=== PATIENT | female | born 1960 | race Caucasian/White ===

== ENCOUNTER → 2016-12-27 | Outpatient (CLI) | payer BC ==
--- NOTE | 2016-12-30 13:07 | MM ---
Reason for exam: screening (asymptomatic). Last mammogram was performed 1 year ago. History: Patient is postmenopausal. Family history of breast cancer in maternal cousin at age 30 and breast cancer in paternal grandmother. Left U/S Cancelled VAD Biopsy of both breasts, May 14, 2013. Excisional biopsy of the left breast, August 10, 2005. Cyst aspiration of the left breast, 2004. Cyst aspiration of the left breast, 2003. Benign core biopsy of the left breast, 2003. Physical Findings: A clinical breast exam by your physician is recommended on an annual basis and results should be correlated with mammographic findings. MG 3D Screening Mammo W/Cad Bilateral CC and MLO view(s) were taken. Prior study comparison: December 22, 2015, bilateral MG 3d screening mammo w/cad. December 16, 2014, bilateral MG screening mammo w CAD. November 19, 2013, CAD bilateral diagnostic mammogram. The breast tissue is heterogeneously dense. This may lower the sensitivity of mammography. Finding: There are typically benign round calcifications in the central position of both breasts. Previous mammotome biopsy in the left breast. There is a chronic nodularity in the left breast. ASSESSMENT: Benign, BI-RAD 2 RECOMMENDATION: Routine screening mammogram of both breasts in 1 year.
== END | disposition home or self-care (01) ==
LOC: RADMAMWWP 15:12
PROVIDERS: ATTEND Obstetrics & Gynecology
DX: Z12.31 Encounter for screening mammogram for malignant neoplasm of breast (principal)
CPT/HCPCS: 77063; G0202

== ENCOUNTER → 2018-01-30 | Outpatient (CLI) | payer BC ==
--- NOTE | 2018-02-03 14:47 | MM ---
Reason for exam: screening (asymptomatic). Last mammogram was performed 1 year and 1 month ago. History: Patient is postmenopausal. Family history of breast cancer in maternal cousin at age 30 and breast cancer in paternal grandmother. Left U/S Cancelled VAD Biopsy of both breasts, May 14, 2013. Excisional biopsy of the left breast, August 10, 2005. Cyst aspiration of the left breast, 2004. Cyst aspiration of the left breast, 2003. Benign core biopsy of the left breast, 2003. Physical Findings: A clinical breast exam by your physician is recommended on an annual basis and results should be correlated with mammographic findings. MG 3D Screening Mammo W/Cad Bilateral CC and MLO view(s) were taken. Prior study comparison: December 27, 2016, bilateral MG 3d screening mammo w/cad. December 22, 2015, bilateral MG 3d screening mammo w/cad. The breast tissue is extremely dense which could obscure a lesion on mammography. Stable benign calcifications. There is no discrete abnormality. No significant changes when compared with prior studies. ASSESSMENT: Benign, BI-RAD 2 RECOMMENDATION: Routine screening mammogram of both breasts in 1 year.
== END | disposition home or self-care (01) ==
LOC: RADMAMWWP 13:36
PROVIDERS: ATTEND Obstetrics & Gynecology
DX: Z12.31 Encounter for screening mammogram for malignant neoplasm of breast (principal)
CPT/HCPCS: 77063; 77067

== ENCOUNTER → 2018-03-16 | Outpatient (CLI) | payer BC ==
--- NOTE | 2018-03-16 14:25 | BD ---
EXAMINATION TYPE: Axial Bone Density DATE OF EXAM: 03/16/2018 COMPARISON:2014 CLINICAL HISTORY: disorder of bone Height: 5'3 /2 Weight: 157 FRAX RISK QUESTIONS: Secondary Osteoporosis: RISK FACTORS HISTORY OF: Postmenopausal woman: MEDICATIONS: Additional Medications: Singulair, Bessy, Additional History: EXAM MEASUREMENTS: Bone mineral densitometry was performed using the [employer] System. Bone mineral density as measured about the Lumbar spine is: ----- L1-L4(G/cm2): 1.124 T Score Values are as follows: ----- L2: -0.8 ----- L3: -0.1 ----- L4: -0.1 ----- L1-L4: -0.5 Bone mineral density has: Decreased -7.9% since study of: 12/16/2014 Bone mineral density about the R hip (g/cm2): 0.807 Bone mineral density about the L hip (g/cm2): 0.851 T Score values are as follows: -----R Neck: -1.7 -----L Neck: -1.3 -----R Total: -0.9 -----L Total: -0.7 Bone mineral density has: Decreased -4.3% since study of: 12/16/2014 IMPRESSION: Osteopenia (T Score between -2.5 and -1). There is slightly increased risk of fracture and the patient may be considered for treatment. Re-Screen 2-5 years. NOTE: T-SCORE=SD OF THE YOUNG ADULT MEAN.
== END | disposition home or self-care (01) ==
LOC: RADBDWWP 12:33
PROVIDERS: ATTEND Obstetrics & Gynecology
DX: Z13.820 Encounter for screening for osteoporosis (principal); M85.80 Other specified disorders of bone density and structure, unspecified site
CPT/HCPCS: 77080

== ENCOUNTER → 2019-03-05 | Outpatient (CLI) | payer BC ==
--- NOTE | 2019-03-08 10:55 | MM ---
Reason for exam: screening (asymptomatic). Last mammogram was performed 1 year and 1 month ago. History: Patient is postmenopausal. Family history of breast cancer in maternal cousin at age 30 and breast cancer in paternal grandmother. Left U/S Cancelled VAD Biopsy of both breasts, May 14, 2013. Excisional biopsy of the left breast, August 10, 2005. Cyst aspiration of the left breast, 2004. Cyst aspiration of the left breast, 2003. Benign core biopsy of the left breast, 2003. Physical Findings: A clinical breast exam by your physician is recommended on an annual basis and results should be correlated with mammographic findings. MG 3D Screening Mammo W/Cad Bilateral CC and MLO view(s) were taken. Prior study comparison: January 30, 2018, bilateral MG 3d screening mammo w/cad. December 27, 2016, bilateral MG 3d screening mammo w/cad. The breast tissue is extremely dense which could obscure a lesion on mammography. Benign appearing bilateral calcifications. Previous mammotome biopsy in the left breast. No significant changes when compared with prior studies. ASSESSMENT: Benign, BI-RAD 2 RECOMMENDATION: Routine screening mammogram of both breasts in 1 year.
== END | disposition home or self-care (01) ==
LOC: RADMAMWWP 10:33
PROVIDERS: ATTEND Obstetrics & Gynecology
DX: Z12.31 Encounter for screening mammogram for malignant neoplasm of breast (principal); Z80.3 Family history of malignant neoplasm of breast
CPT/HCPCS: 77063; 77067

== ENCOUNTER → 2020-04-24 | Outpatient (CLI) | payer BC ==
--- NOTE | 2020-04-26 08:45 | MM ---
Reason for exam: screening (asymptomatic). Last mammogram was performed 1 year and 2 months ago. History: Patient is postmenopausal. Family history of breast cancer in maternal cousin at age 30 and breast cancer in paternal grandmother. Left U/S Cancelled VAD Biopsy of both breasts, May 14, 2013. Excisional biopsy of the left breast, August 10, 2005. Cyst aspiration of the left breast, 2004. Cyst aspiration of the left breast, 2003. Benign core biopsy of the left breast, 2003. Physical Findings: A clinical breast exam by your physician is recommended on an annual basis and results should be correlated with mammographic findings. MG 3D Screening Mammo W/Cad Bilateral CC and MLO view(s) were taken. Prior study comparison: March 05, 2019, bilateral MG 3d screening mammo w/cad. January 30, 2018, bilateral MG 3d screening mammo w/cad. The breast tissue is heterogeneously dense. This may lower the sensitivity of mammography. Bilateral calcifications. No significant changes when compared with prior studies. ASSESSMENT: Benign, BI-RAD 2 RECOMMENDATION: Routine screening mammogram of both breasts in 1 year.
== END | disposition home or self-care (01) ==
LOC: RADMAMWWP 10:51
PROVIDERS: ATTEND Internal Medicine
DX: Z12.31 Encounter for screening mammogram for malignant neoplasm of breast (principal)
CPT/HCPCS: 77063; 77067

== ENCOUNTER → 2020-06-27 | Outpatient (CLI) | payer BC ==
--- NOTE | 2020-06-28 22:24 | BD ---
EXAMINATION TYPE: Axial Bone Density DATE OF EXAM: 06/27/2020 COMPARISON: DEXA bone scan March 16, 2018 CLINICAL HISTORY: Disorder of bone. Postmenopausal female. Height: 5 FT 3 1/2 IN Weight: 157 FRAX RISK QUESTIONS: Alcohol (3 or more units per day): NO Family History (Parent hip fracture): NO Glucocorticoids (More than 3mos): NO (Ex: prednisone, prednisolone, methylprednisolone, dexamethasone, and hydrocortisone). History of Fracture in Adulthood: NO Secondary Osteoporosis: 1. Type 1 Diabetes: NO 2. Hyperthyroidism: NO 3. Menopause before 45: NO 4. Malnutrition: NO 5. Chronic liver disease: NO Rheumatoid Arthritis: NO Current Tobacco Use: NO RISK FACTORS HISTORY OF: Family History of Osteoporosis: YES Active: YES Diet low in dairy products/other sources of calcium: NO Postmenopausal woman: AGE 54-55 MEDICATIONS: Additional Medications: MYRBETRIQ, EDITA,SINGULAIR Additional History: CARPAL TUNNEL SURG EXAM MEASUREMENTS: Bone mineral densitometry was performed using the [employer] System. Bone mineral density as measured about the Lumbar spine is: ----- L1-L4(G/cm2): 1.131 T Score Values are as follows: ----- L2: -0.8 ----- L3: 0.2 ----- L4: 0.2 ----- L1-L4: -0.4 Bone mineral density has: INCREASED 2.2 % since study of: 2017 Bone mineral density about the R hip (g/cm2): 0.821 Bone mineral density about the L hip (g/cm2): 0.848 T Score values are as follows: -----R Neck: -1.6 -----L Neck: -1.4 -----R Total: -0.9 -----L Total: -0.8 Bone mineral density has: DECREASED -0.6 % since study of: 2017 IMPRESSION: Osteopenia (T Score between -2.5 and -1) remains present. There remains slightly increased risk of fracture and the patient may be considered for treatment. Re-Screen 2-5 years. NOTE: T-SCORE=SD OF THE YOUNG ADULT MEAN.
== END | disposition home or self-care (01) ==
LOC: RADBDWWP 16:01
PROVIDERS: ATTEND Obstetrics & Gynecology
DX: M85.80 Other specified disorders of bone density and structure, unspecified site (principal)
CPT/HCPCS: 77080

== ENCOUNTER → 2021-05-21 | Outpatient (CLI) | payer BC ==
--- NOTE | 2021-05-22 13:38 | MM ---
Reason for exam: screening (asymptomatic). Last mammogram was performed 1 year and 1 month ago. History: Patient is postmenopausal. Family history of breast cancer in maternal cousin at age 30 and breast cancer in paternal grandmother. Left U/S Cancelled VAD Biopsy of both breasts, May 14, 2013. Excisional biopsy of the left breast, August 10, 2005. Cyst aspiration of the left breast, 2004. Cyst aspiration of the left breast, 2003. Benign core biopsy of the left breast, 2003. Physical Findings: A clinical breast exam by your physician is recommended on an annual basis and results should be correlated with mammographic findings. MG 3D Screening Mammo W/Cad Bilateral CC and MLO view(s) were taken. Prior study comparison: April 24, 2020, bilateral MG 3d screening mammo w/cad. March 05, 2019, bilateral MG 3d screening mammo w/cad. January 30, 2018, bilateral MG 3d screening mammo w/cad. The breast tissue is heterogeneously dense. This may lower the sensitivity of mammography. No significant changes when compared with prior studies. ASSESSMENT: Benign, BI-RAD 2 RECOMMENDATION: Routine screening mammogram of both breasts in 1 year.
== END | disposition home or self-care (01) ==
LOC: RADMAMWWP 11:12
PROVIDERS: ATTEND Obstetrics & Gynecology
DX: Z12.31 Encounter for screening mammogram for malignant neoplasm of breast (principal); Z80.3 Family history of malignant neoplasm of breast
CPT/HCPCS: 77063; 77067

== ENCOUNTER → 2021-10-24 | Outpatient (CLI) | payer BC ==
[2021-10-24 12:40] LABS: Basophils % (A) 0 %; Eosinophils # (A) 0.1 k/uL (0-0.7); Eosinophils % (A) 0 %; HCT 43.7 % (34.0-46.0); HGB 14.5 gm/dL (11.4-16.0); Lymphocytes # (A) 1.4 k/uL (1.0-4.8); Lymphocytes % (A) 10 %; MCH 32.8 pg (25.0-35.0); MCHC 33.1 g/dL (31.0-37.0); MCV 99.2 fL (80.0-100.0); Mean Platelet Volume 7.6; Monocytes # (A) 0.6 k/uL (0-1.0); Monocytes % (A) 4 %; Neutrophils # (A) 12.5 k/uL (1.3-7.7); Neutrophils % (A) 86 %; Platelet Count 232 k/uL (150-450); RBC 4.41 m/uL (3.80-5.40); RDW 11.9 % (11.5-15.5); WBC 14.7 k/uL (3.8-10.6)
[2021-10-24 12:57] LABS: ALT 46 U/L (4-34); AST 61 U/L (14-36); African American GFR (CKD) >90 (>60 ml/min/1.73 sqM); Albumin 4.2 g/dL (3.5-5.0); Albumin/Globulin Ratio 1.2; Alkaline Phosphatase 106 U/L (38-126); Anion Gap 8 mmol/L; Blood Urea Nitrogen 13 mg/dL (7-17); Calcium 9.3 mg/dL (8.4-10.2); Carbon Dioxide 28 mmol/L (22-30); Chloride 103 mmol/L (98-107); Globulin 3.4 g/dL; Glucose 107 mg/dL (74-99); Non-African American GFR(CKD) >90 (>60 ml/min/1.73 sqM); Potassium 4.5 mmol/L (3.5-5.1); Sodium 139 mmol/L (137-145); Total Protein 7.6 g/dL (6.3-8.2)
--- NOTE | 2021-10-24 13:18 | CT ---
EXAMINATION TYPE: CT abdomen pelvis w con DATE OF EXAM: 10/24/2021 COMPARISON: No previous CT scan is available for comparison. HISTORY: rectal bleeding CT DLP: 614.7 mGycm Automated exposure control for dose reduction was used. TECHNIQUE: Helical acquisition of images was performed from the lung bases through the pelvis. Recon structed sagittal and coronal images. CONTRAST: Performed with Oral Contrast and with IV Contrast, patient injected with 100 mL of Isovue 300. FINDINGS: Acute diverticulitis changes are seen involving the rectosigmoid junction with inflamed diverticulum, adjacent colonic wall thickening, surrounding fat stranding and minimal reactive fluid. No definite abscess formation or signs of perforation. Diffuse thickening of the rectal wall with less wall thick ening of the remainder of the colon which could be related to chronic colitis. It is not possible to exclude underlying lesion in the distal sigmoid colon and the rectum. Acute proctitis also cannot be excluded. Other scattered uncomplicated colonic diverticulosis. Unremarkable stomach, duodenum and sm all bowel. Normal appendix. Left hepatic lobe anterior cyst measuring 17 mm, without suspicious feature. No other definite hepati c focal lesion identified. Unremarkable gallbladder, spleen, pancreas, abdominal aorta and adrenals. Bilateral parapelvic renal cysts, otherwise unremarkable kidneys. Unremarkable urinary bladder. No gr oss uterine mass. Suspected pelvic adhesions between the sigmoid colon and the right adnexa. No gross adnexal mass. No suspicious lymphadenopathy or sizable ascites. Elongated 8 mm nodule is seen in the left lower annamarie g zone, possibly representing a perifissural lymph node yet not completely included in the scan. Sebas mmend further elective CT assessment of the chest. Bilateral basal linear pulmonary atelectasis. Dege nerative changes at L5-S1 level. No aggressive bone lesion. IMPRESSION: Findings are consistent with acute diverticulitis of the rectosigmoid junction as described above. Wa ll thickening of the rectum which could be related to proctitis. It is not possible to exclude subtle underlying lesion at the rectosigmoid junction or in the rectum. Possible chronic colitis. Recommend clinical correlation and further workup. GI consultation can be considered. 8mm nodule in the left lower lung zone, not completely included in the scan, requiring further electi ve chest CT assessment. Other incidental findings as described above. Findings were discussed with the referring physician immediately after the CT scan was performed.
== END | disposition home or self-care (01) ==
LOC: RADCTMAIN 10:40
PROVIDERS: ATTEND Internal Medicine
DX: K57.31 Diverticulosis of large intestine without perforation or abscess with bleeding (principal); K63.89 Other specified diseases of intestine; K62.89 Other specified diseases of anus and rectum
CPT/HCPCS: 80053; 85025; 74177; 36415; Q9967

== ENCOUNTER → 2022-07-15 | Outpatient (CLI) | payer BC ==
--- NOTE | 2022-07-16 08:57 | MM ---
Reason for Exam: Screening (asymptomatic). Last mammogram was performed 1 year(s) and 2 month(s) ago. Patient History: Menarche at age 10. First Full-Term at age 22. Postmenopausal. Patient has history of breast feeding. 08/10/2005, Excisional Biopsy on the Left side. 2004, Cyst Aspiration on the Left side. 2003, Cyst Aspiration on the Left side. 2003, Benign Core Biopsy on the left side. 05/14/2013, Bilateral Left U/S Cancelled VAD Biopsy. Paternal grandmother had breast cancer. Maternal cousin had breast cancer, age 30. Risk Values: Sylvie 5 year model risk: 2.3%. NCI Lifetime model risk: 9.7%. Prior Study Comparison: 04/16/2013 Left Diagnostic Ultrasound, [facility]. 11/19/2013 Bilateral Diagnostic Mammogram, [facility]. 11/19/2013 Left Diagnostic Ultrasound, [facility]. 12/16/2014 Bilateral Screening Mammogram, [facility]. 12/22/2015 Bilateral Screening Mammogram, [facility] 12/27/2016 Bilateral Screening Mammogram, [facility] 01/30/2018 Bilateral Screening Mammogram, [facility]. 03/05/2019 Bilateral Screening Mammogram, [facility]. 04/24/2020 Bilateral Screening Mammogram, [facility]. 05/21/2021 Bilateral Screening Mammogram, [facility]. Tissue Density: The breast tissue is heterogeneously dense. This may lower the sensitivity of mammography. Findings: Analyzed By CAD. Biopsy clip in the left breast. There is no suspicious group of microcalcifications or new suspicious mass in either breast. Overall Assessment: Negative, BI-RAD 1 Management: Screening Mammogram of both breasts in 1 year. A clinical breast exam by your physician is recommended on an annual basis and results should be correlated with mammographic findings. [facility] will attempt to contact patient to return for supplemental views and ultrasound if indicated. Electronically signed and approved by: Jose Houston DO
--- NOTE | 2022-07-16 11:53 | BD ---
EXAMINATION TYPE: Axial Bone Density DATE OF EXAM: 07/15/2022 COMPARISON: 06/27/2020 CLINICAL HISTORY: 62 years old Female. ICD-10 CODE: M85.88 DISORDER OF BONE, OSTEOPENIA Height: 63 Weight: 153 FRAX RISK QUESTIONS: Family History (Parent hip fracture): NO History of Fracture in Adulthood: NO Secondary Osteoporosis: NO Rheumatoid Arthritis: NO Current Tobacco Use: NO RISK FACTORS HISTORY OF: Family History of Osteoporosis: YES Active: YES Diet low in dairy products/other sources of calcium: YES Postmenopausal woman: YES 53 Lost more than 2 inches in height since high school: NO MEDICATIONS: Additional Medications: YES CALCIUM, VIT D, SINGULAR, EDITA , MYRBETRIQ , REFLUX EXAM MEASUREMENTS: Bone mineral densitometry was performed using the [employer] System. Bone mineral density as measured about the Lumbar spine is: ----- L1-L4(G/cm2): 1.068 T Score Values are as follows: ----- L1: -1.9 ----- L2: -1.8 ----- L3: -0.4 ----- L4: -0.1 ----- L1-L4: -0.9 Bone mineral density has: Decreased -6.3% since study of: 06/27/2020 Bone mineral density about the R hip (g/cm2): 0.884 Bone mineral density about the L hip (g/cm2): 0.883 T Score values are as follows: -----R Neck: -1.9 -----L Neck: -1.8 -----R Total: -1.0 -----L Total: -1.0 Bone mineral density has: Decreased -1.8% since study of: 06/27/2020 FRAX%s: The graph provided illustrates a 9.9% chance for a major osteoporotic fx and a 1.3% chance fo r the hips probability for fx in 10 years time. IMPRESSION: Osteopenia (T Score between -2.5 and -1). There is slightly increased risk of fracture and the patient may be considered for treatment. Re-Screen 2-5 years. NOTE: T-SCORE=SD OF THE YOUNG ADULT MEAN.
== END | disposition home or self-care (01) ==
LOC: RADMAMWWP 15:44
PROVIDERS: ATTEND Obstetrics & Gynecology
DX: Z12.31 Encounter for screening mammogram for malignant neoplasm of breast (principal); M85.88 Other specified disorders of bone density and structure, other site; Z78.0 Asymptomatic menopausal state; Z80.3 Family history of malignant neoplasm of breast; Z13.820 Encounter for screening for osteoporosis
CPT/HCPCS: 77063; 77067; 77080

== ENCOUNTER → 2023-07-23 | Outpatient (CLI) | payer BC ==
--- NOTE | 2023-07-24 17:10 | MM ---
Reason for Exam: Screening (asymptomatic). Last screening mammogram was performed 12 month(s) ago. Patient History: Menarche at age 10. First Full-Term at age 22. Postmenopausal. Patient has history of breast feeding. 08/10/2005, Excisional Biopsy on the Left side. 2004, Cyst Aspiration on the Left side. 2003, Cyst Aspiration on the Left side. 2003, Benign Core Biopsy on the left side. 05/14/2013, Bilateral Left U/S Cancelled VAD Biopsy. Paternal grandmother had breast cancer. Maternal cousin had breast cancer, age 30. Risk Values: Sylvie 5 year model risk: 2.4%. NCI Lifetime model risk: 9.4%. Prior Study Comparison: 04/24/2020 Bilateral Screening Mammogram, [facility]. 05/21/2021 Bilateral Screening Mammogram, [facility]. 07/15/2022 Bilateral MG 3D screening mammo w/cad, [facility]. Tissue Density: The breast tissue is extremely dense which could obscure a lesion on mammography. Findings: Analyzed By CAD. Pattern appears stable. Core marker is within the left breast. Scattered benign punctate calcifications are present bilaterally. No suspicious groups of microcalcifications, spiculated or lobular masses, architectural distortion or other secondary signs of malignancy are mammographically apparent. Overall Assessment: Benign, BI-RAD 2 Management: Screening Mammogram of both breasts in 1 year. A negative mammogram report should not preclude additional follow up of suspicious palpable abnormalities. Patient should continue monthly self breast exam. A clinical breast exam by your physician is recommended on an annual basis and results should be correlated with mammographic findings. Electronically signed and approved by: Erickson Her D.O. Radiologis
== END | disposition home or self-care (01) ==
LOC: RADMAMWWP 13:57
PROVIDERS: ATTEND Obstetrics & Gynecology
DX: Z12.31 Encounter for screening mammogram for malignant neoplasm of breast (principal); Z78.0 Asymptomatic menopausal state; Z80.3 Family history of malignant neoplasm of breast
CPT/HCPCS: 77063; 77067

== ENCOUNTER → 2024-01-06 | Outpatient (CLI) | payer BC ==
--- NOTE | 2024-01-07 08:28 | US ---
EXAMINATION TYPE: US carotid duplex BILAT DATE OF EXAM: 01/06/2024 COMPARISON: NONE CLINICAL INDICATION: Female, 63 years old with history of I65.23 OCCLUSION AND STENOSIS OF BILATERAL CAROTID ARTERIES; Hyperlipidemia. Lightheadedness. TECHNIQUE: Carotid duplex ultrasound examination. Indirect Doppler criteria was utilized. FINDINGS: EXAM MEASUREMENTS: RIGHT: Peak Systolic Velocity (PSV) cm/sec ----- Right CCA: 78.7 ----- Right ICA: 97.4 ----- Right ECA: 91.9 ICA/CCA ratio: 1.2 RIGHT: End Diastole cm/sec ----- Right CCA: 23.7 ----- Right ICA: 32.5 ----- Right ECA: 14.9 LEFT: Peak Systolic Velocity (PSV) cm/sec ----- Left CCA: 76.5 ----- Left ICA: 110.6 ----- Left ECA: 88.6 ICA/CCA ratio: 1.4 LEFT: End Diastole cm/sec ----- Left CCA: 24.8 ----- Left ICA: 35.8 ----- Left ECA: 14.5 VERTEBRALS (direction of flow): Right Vertebral: Antegrade Left Vertebral: Antegrade Rhythm: Normal HOSTEL PARENT NOTES: No elevated velocities at this time. Some atheromatous plaquing is present. *Hypoechoic area seen within the left neck: 1.4 x 1.2 x 0.6 cm. IMPRESSION: 1. Atheromatous plaquing without significant flow-limiting stenosis based on velocities. Criteria for Assigning % of Stenosis / Diameter reduction (Estimation based on the indirect measurements of the internal carotid artery velocities (ICA PSV). 1. Normal (no stenosis)=ICA PSV < 125 cm/s: ratio < 2.0: ICA EDV<40 cm/s. 2. Less than 50% stenosis=ICA PSV < 125 cm/s: ratio < 2.0: ICA EDV<40 cm/s. 3. 50 to 69% stenosis=ICA PSV of 125 to 230 cm/s: ration 2.0 ? 4.0: ICA EDV 40-100 cm/s. 4. Greater than 70% stenosis to near occlusion= ICA PSV > 230 cm/s: ratio > 4.0: ICA EDV > 100 cm/s. 5. Near occlusion= ICA PSV velocities may be low or undetectable: variable ratio and ICA EDV. 6. Total occlusion=unable to detect flow.
--- NOTE | 2024-01-09 13:00 | CT ---
EXAMINATION TYPE: CT chest w con DATE OF EXAM: 01/06/2024 COMPARISON: None HISTORY: nodules CT DLP: 246.8 mGycm, Automated exposure control for dose reduction was used. CONTRAST: Performed injected with 100 mL of Isovue 300. TECHNIQUE: Axial images were obtained at 5 mm thick sections. Reconstructed images are reviewed on [employer] computer in the coronal plane. FINDINGS: Portion of the thyroid visualized is normal. There is a 0.7 x 0.3 cm nodule in the left lateral lung base. Series 4 image 38. No additional nodule s are evident. No suspicious infiltrates are evident. There is a 0.9 cm nodule within the pretracheal space. The ascending aorta diameter at the level of the main pulmonary artery is 2.8 cm. The main pulmonary artery diameter at the bifurcation is 2.[address] sections are obtained through the upper abdomen. Moderate left hydronephrosis is partially visualized IMPRESSION: 1. Solitary nodule left lung base. PET/CT can further evaluate this finding. 2. Left hydronephrosis partially visualized.
== END | disposition home or self-care (01) ==
LOC: RADUSWWP 16:25
PROVIDERS: ATTEND Internal Medicine
DX: R91.1 Solitary pulmonary nodule (principal); N13.30 Unspecified hydronephrosis; I65.23 Occlusion and stenosis of bilateral carotid arteries; R07.2 Precordial pain; E78.5 Hyperlipidemia, unspecified; R42 Dizziness and giddiness
CPT/HCPCS: 93880; 71260; Q9967

== ENCOUNTER → 2024-01-07 | Outpatient (CLI) | payer BC ==
--- NOTE | 2024-01-07 12:14 | CA ---
Exercise Nuclear Stress Test Report Name: Latoya Cedeño Exam Date: 01/07/2024 09:40 Exam Location: [facility] Ht (in): 64 Wt (lb): 150 BSA: 1.73 Ordering Phys: Urban Kelley MD Referring Phys: Urban Kelley MD Technologist: KENYA Age: 63 Gender: F : 1960 Procedure CPT: Indications: R91.1 PUL NOD I65.23 STENOSIS R07.2 PRECORD PAIN ICD-10 Codes: Patient History: Chest pain and family history of heart disease Medications: Meds past 24 hrs: Pretest Chest Pain: STRESS TEST Damien Protocol Exercise Duration (min:sec): 07:[address] Depressions (mm): Angina Score: Avery Score: Resting HR (bpm): 58 Peak HR (bpm): 160 Resting BP (mmHg): 108 / 64 Peak BP (mmHg): 185 / 67 MPHR: 156 Target HR: 133 % MPHR: 103 METS: 8.9 Total Dose: Peak Dose: Atropine: Double Product: 03763 BP Response: Stress Termination: Reached target heart rate Stress Symptoms: No chest pain or symptoms Stress Summary: ECG ANALYSIS Resting ECG: Stress ECG: CONCLUSIONS Good exercise tolerance Normal electrocardiogram in response to exercise Dr. Kota Wilks MD (Electronically Signed) Final Date: 07 Jan 2024 12:13
--- NOTE | 2024-01-07 13:01 | NM ---
EXAMINATION TYPE: NM stress cardiolite complete DATE OF EXAM: 01/07/2024 COMPARISON: NONE CLINICAL INDICATION: Female, 63 years old with history of R91.1 PUL NOD I65.23 STENOSIS R07.2 PRECORD PAIN; TECHNIQUE: After the intravenous administration of 9.2 mCi Tc 99m Sestamibi - Rest images obtained 4 5 minutes post injection. The patient exercised using a MARY JO protocol and 1 minute prior to peak e xercise was injected with 25.4 mCi Tc 99m Sestamibi - Stress images obtained 5 minutes post injection . FINDINGS: Targeted heart rate was achieved during performance of the study. Review of stress and rest SPECT sidney ges demonstrates no distinct perfusion abnormality. Gated analysis shows normal wall motion with an estimated left ventricular ejection fraction of 69 %. IMPRESSION: No scintigraphic evidence for reversible ischemia
== END | disposition home or self-care (01) ==
LOC: RADNMMAIN 07:58
PROVIDERS: ATTEND Internal Medicine
DX: R91.1 Solitary pulmonary nodule (principal); I65.23 Occlusion and stenosis of bilateral carotid arteries; R07.2 Precordial pain
CPT/HCPCS: 93017; 78452; A9500

== ENCOUNTER → 2024-02-08 | Outpatient (CLI) | payer BC ==
--- NOTE | 2024-02-09 13:25 | PE ---
EXAMINATION TYPE: PET CT fusion skull to thigh DATE OF EXAM: 02/08/2024 COMPARISON: CT chest 01/06/2024 Prior PET/CT: None HISTORY: Solitary pulmonary nodule TECHNIQUE: Following the intravenous administration of 12.61 mCi of F-18 FDG, whole body images are performed from the skull base to the midthigh. Images are reviewed on the computer in the coronal, a xial, and sagittal planes. Reconstructed rotating images are created on independent workstation and reviewed on the computer. A localization and attenuation correction CT is performed in conjunction with the PET scan. DLP: 499.06 mGycm SCAN: Initial Blood glucose: 104 mg/dL Average Mediastinum SUV: 1.78 Average Liver SUV: 2.36 FINDINGS: NECK: No abnormal uptake THORAX: No abnormal uptake At the small nodule in the posterior lateral left mid to lower lung field, image 106, SUV is normal a t 0.6 ABDOMEN: No abnormal uptake PELVIS: No abnormal uptake OSSEOUS STRUCTURES: No abnormal uptake LOCALIZATION CT: Nodule appears similar to prior COMPARISON: No significant interval change IMPRESSION: 1. Benign-appearing nodule left lung base. Follow-up CT chest in 6 months is recommended to confirm s tability. This should be confirmed as stable over the course of 2 years. If there is interval growth, repeat PET CT can be performed.
== END | disposition home or self-care (01) ==
LOC: RADPETMAIN 09:52
PROVIDERS: ATTEND Internal Medicine
DX: R91.1 Solitary pulmonary nodule (principal)
CPT/HCPCS: 78815; A9552

== ENCOUNTER → 2024-02-12 | Outpatient (CLI) | payer BC ==
--- NOTE | 2024-02-13 10:08 | US ---
EXAMINATION TYPE: US kidneys/renal and bladder DATE OF EXAM: 02/12/2024 COMPARISON: NONE CLINICAL INDICATION: Female, 64 years old with history of N13.30 UNSPECIFIED HYDRONEPHROSIS; EXAM MEASUREMENTS: Right Kidney: 9.9 x 6.5 x 6.5 cm Left Kidney: 10.5 x 6.1 x 6.1 cm Post Void Residual Volume: NA mL Right Kidney: wnl Left Kidney: Prominent renal pyramid vs cyst noted Bladder: wnl Bilateral Jets seen: Yes Normal Post Void Residual: NA There is no evidence for hydronephrosis at this point in time. No nephrolithiasis is seen. No jun s are identified. The urinary bladder is anechoic. Bilateral ureteral jets are seen. IMPRESSION: 1. Probable small parapelvic cyst of the left kidney. 2. no solid renal mass, renal calcification or hydronephrosis bilaterally.
== END | disposition home or self-care (01) ==
LOC: RADUSWWP 15:23
PROVIDERS: ATTEND Internal Medicine
DX: N13.30 Unspecified hydronephrosis (principal)
CPT/HCPCS: 76770

== ENCOUNTER → 2024-07-26 | Outpatient (CLI) | payer BC, MEDICARE ==
--- NOTE | 2024-07-26 14:18 | BD ---
EXAMINATION TYPE: Axial Bone Density DATE OF EXAM: 07/26/2024 CLINICAL HISTORY: 64 years old Female. ICD-10 CODE: M85.851 Osteopenia , Additional History: Height: 63.2 in Weight: 154 lbs EXAM MEASUREMENTS: Bone mineral densitometry was performed using the [employer] System. Bone mineral density as measured about the Lumbar spine is: ----- L1-L4(G/cm2): 1.093 T Score Values are as follows: ----- L1: -1.8 ----- L2: -1.2 ----- L3: -0.4 ----- L4: 0.1 ----- L1-L4: -0.7 Z Score Values are as follows: ----- L1: -0.4 ----- L2: 0.2 ----- L3: 1.1 ----- L4: 1.5 ----- L1-L4: 0.7 Bone mineral density has: Increased 2.3% since study of: 07/15/2022 Bone mineral density about the R hip (g/cm2): 0.858 Bone mineral density about the L hip (g/cm2): 0.860 T Score values are as follows: -----R Neck: -1.9 -----L Neck: -1.6 -----R Total: -1.2 -----L Total: -1.2 Z Score values are as follows: -----R Neck: -0.5 -----L Neck: -0.2 -----R Total: -0.1 -----L Total: -0.1 Bone mineral density has: Decreased -2.8% since study of: 07/15/2022 FRAX%s: The graph provided illustrates a 10.3% chance for a major osteoporotic fx and a 1.4% chance f or the hips probability for fx in 10 years time. IMPRESSION: Osteopenia (T Score between -2.5 and -1). There is slightly increased risk of fracture and the patient may be considered for treatment. Re-Screen 2-5 years. NOTE: T-SCORE=SD OF THE YOUNG ADULT MEAN. [facility], , 07/26/2024 2:15 PM
--- NOTE | 2024-07-27 11:24 | MM ---
Reason for Exam: Screening (asymptomatic). Last screening mammogram was performed 12 month(s) ago. Patient History: Menarche at age 10. First Full-Term at age 22. Postmenopausal. Patient has history of breast feeding. 08/10/2005, Excisional Biopsy on the Left side. 2004, Cyst Aspiration on the Left side. 2003, Cyst Aspiration on the Left side. 2003, Benign Core Biopsy on the left side. 05/14/2013, Bilateral Left U/S Cancelled VAD Biopsy. Paternal grandmother had breast cancer. Maternal cousin had breast cancer, age 30. Risk Values: Sylvie 5 year model risk: 2.4%. NCI Lifetime model risk: 9.1%. Prior Study Comparison: 12/27/2016 Bilateral Screening Mammogram, [facility]. 01/30/2018 Bilateral Screening Mammogram, [facility] 03/05/2019 Bilateral Screening Mammogram, [facility]. 04/24/2020 Bilateral Screening Mammogram, [facility]. 05/21/2021 Bilateral Screening Mammogram, [facility]. 07/15/2022 Bilateral MG 3D screening mammo w/cad, [facility]. 07/23/2023 Bilateral MG 3D screening mammo w/cad, [facility]. Tissue Density: The breasts are heterogeneously dense, which may obscure small masses. Findings: Analyzed By CAD. Left breast biopsy clip. Right breast: There is no suspicious group of microcalcifications or new suspicious mass. Benign-appearing calcifications right breast. Left breast: There is no suspicious group of microcalcifications or new suspicious mass. Benign-appearing calcifications left breast. Overall Assessment: Benign, BI-RAD 2 Management: Screening Mammogram of both breasts in [address] [facility] will attempt to contact patient to return for supplemental views and ultrasound if indicated. Patient should continue monthly self-breast exams. A clinical breast exam by your physician is recommended on an annual basis. This exam should not preclude additional follow-up of suspicious palpable abnormalities. Note on Sylvie scores and lifetime risk: 1. A Sylvie score greater than 3% is considered moderate risk. If this is the case, consider specialist referral to assess eligibility for a risk reducing agent. 2. If overall lifetime risk for the development of breast cancer is 20% or higher, the patient may qualify for future screening with alternating mammogram and breast MRI. [facility], , 07/27/2024 11:20 AM. Electronically signed and approved by: Jose Houston DO
== END | disposition home or self-care (01) ==
LOC: RADMAMWWP 12:59
PROVIDERS: ATTEND Internal Medicine
DX: Z12.31 Encounter for screening mammogram for malignant neoplasm of breast (principal); Z13.820 Encounter for screening for osteoporosis; M85.89 Other specified disorders of bone density and structure, multiple sites; Z78.0 Asymptomatic menopausal state; Z80.3 Family history of malignant neoplasm of breast
CPT/HCPCS: 77063; 77067; 77080

== ENCOUNTER → 2024-11-10 | Outpatient (CLI) | payer MEDICARE, OTHER ==
--- NOTE | 2024-11-10 10:56 | CT ---
EXAMINATION TYPE: CT chest wo con CT DLP: 437 mGycm, Automated exposure control for dose reduction was used. DATE OF EXAM: 11/10/2024 10:39 AM COMPARISON: PET CT 02/08/24, CT chest 01/06/2024 CLINICAL INDICATION:Female, 64 years old with history of E04.1 Thyroid nodule; R91.1 Solitary pulmona ry; PHH, Lung nodules TECHNIQUE: Multiple axial images were obtained through the chest without IV contrast. Lack of IV or o ral contrast limits evaluation of solid and hollow organ viscera. . Coronal and sagittal reformats re viewed. FINDINGS: LUNGS/ PLEURA: No pleural effusion, pneumothorax, focal consolidation. Stable left lower lobe 7.8 mm pulmonary nodule (series 4, series 6). This abuts the major fissure. No new or enlarging pulmonary no dules. AIRWAY: Patent and unremarkable.. HEART: Size within normal limits.No pericardial effusion. No significant coronary artery calcificatio ns. MEDIASTINUM: No gross evidence of adenopathy. VASCULATURE: No aortic aneurysm. MUSCULOSKELETAL: No acute osseous abnormalities SOFT TISSUES/LYMPH NODES: Unremarkable. LOWER NECK: No significant findings. UPPER ABDOMEN: Stable left anterior hepatic lobe 1.5 cm cyst. Partial visualization of left renal sin us cysts. IMPRESSION: Stable left lower lobe 7.8 mm pulmonary nodule. No new or enlarging pulmonary nodules. Follow-up CT c hest in one year is recommended. [facility], , 11/10/2024 10:54 AM
--- NOTE | 2024-11-10 11:10 | US ---
EXAMINATION TYPE: US thyroid st tissue head/neck DATE OF EXAM: 11/10/2024 COMPARISON: CT CLINICAL INDICATION: Female, 64 years old with history of E04.1 Thyroid nodule; R91.1 Solitary pulmon jordan; Not on thyroid meds. TECHNIQUE: Grayscale and color Doppler imaging of the thyroid gland. FINDINGS: GLAND SIZE: Right Lobe: 3.7 x 1.4 x 1.5 cm Overall Parenchyma: homogeneous Left Lobe: 3.4 x 0.9 x 1.3 cm Overall Parenchyma: homogeneous Isthmus Thickness: 0.2 cm NODULES RIGHT: # of nodules measured on right: 1 1. Colloid cyst= 0.4 X 0.3 x 0.3 cm, lower mid, Prior size: No prior TIRADS Score: 0 TIRADS Category 1: Benign Composition: Cystic or almost completely cystic (0 points). Recommendation: No FNA LEFT: # of nodules measured on left: 0 ISTHMUS: # of nodules measured in the isthmus: 0 Bilateral neck scanned, left lateral lymph node seen with short axis = 0.4 cm and cortical thickness= 1.8 mm. This is within normal limits for size. IMPRESSION: No suspicious thyroid nodules. [facility], , 11/10/2024 11:08 AM
== END | disposition home or self-care (01) ==
LOC: RADCTMAIN 10:04
PROVIDERS: ATTEND Internal Medicine
DX: E04.2 Nontoxic multinodular goiter (principal); R91.8 Other nonspecific abnormal finding of lung field
CPT/HCPCS: 71250; 76536